=== PATIENT | female | born 1985 | race Caucasian/White ===

== ENCOUNTER 2018-04-11 12:02 | Emergency (ER) | payer SELFPAY ==
[~2018-04-11] VITALS: Ht 172.7 cm; Wt 63.6 kg
[2018-04-11 12:04] VITALS: BP 121/84
== END 2018-04-11 13:04 | disposition home or self-care (01) ==
LOC: EMS 12:03
DX: F32.9 Major depressive disorder, single episode, unspecified (principal); F17.210 Nicotine dependence, cigarettes, uncomplicated; Z88.1 Allergy status to other antibiotic agents; Z98.890 Other specified postprocedural states
CPT/HCPCS: 99284; 99406